=== PATIENT | male | born 1960 | race Hispanic/Latino ===

== ENCOUNTER → 2024-03-16 | Outpatient (CLI) | payer MEDICARE ==
--- NOTE | 2024-03-16 13:48 | HMCSR ---
APPROVED REPORT EXAM: Two-dimensional and M-mode echocardiogram with Doppler and color Doppler. INDICATION ICD: I50.22 Chronic systolic CHF 2D Dimensions RVDd3.9 cmLVEF(%)34.9 (>50%)LVED Vol(simp.)166.0 mL IVSd0.5 (0.7-1.1cm)FS(%)17 %LVES Vol(simp.)111.0 mL LVDd5.3 (3.8-5.6cm)Ao Root(2D)2.9 (2.0-3.7cm)LVEF(%, simp.)33 % PWd0.7 (0.7-1.1cm)LVOT diam1.9 (1.8-2.4cm)LA ESV INDEX (BP)28.14 mL/m2 LVDs4.4 (2.5-4.0cm)IVC diam2.0 cm Aortic Valve AoV Vmax1.2 m/Aris Peak GR5.4 mmHgLVOT Vmax0.8 m/s AoV VTI0.3 mAo Mean GR3.1 mmHgLVOT VTI0.20 m ARNAUD (VMAX)1.9 cm2AVA (VTI) 1.9 cm2 Mitral Valve MV E Vmax48.1 cm/sDECEL Wwao017 ms MV A Vmax40.1 cm/sP 1/2 T39 ms E/A ratio1.2MVA (PHT)5.7 cm2 MR Max PG62 mmHg TDI E/E' Medial7.5E/E' Lateral6.7 Pulmonary Valve PV Vmax0.9 m/sPV VTI0.20 mPV Mean GR2 mmHg PV Peak GR3.2 mmHgPI End Annemarie. Jonathan 1.0 cm/s Tricuspid Valve TR Vmax2.1 m/sRAP (EST) 8 jvBpZNWB43.1 mmHg TR Peak GR18.1 mmHg Left Ventricle The left ventricle chamber size is normal. There is thinning and akinesis of the anteroapical, apical and inferoapical wall. Limited apical dyskinesis. Thinning of the distal anterior wall and apex. No LVH. LVEF is estimate at 25-30%. Previously the LVEF by Lexiscan Cardiolite stress test was 25-30%. T here is an apical mural thrombus measuring 1.3 cm x 2.0 cm, with a more firm appearance without lobul ation or mobility. Fibrotic central element seen, with an inferoapical pedunculated stalk/attachment. Left ventricular filling pattern is normal for age. Right Ventricle The right ventricle is normal size. The right ventricular systolic function is normal. Atria The left atrium size is normal. The right atrium is mildly dilated. Aortic Valve Aortic valve is trileaflet. Aortic valve leaflets are sclerotic but open well. No aortic regurgitatio n is present. There is no aortic valvular stenosis. Mitral Valve Mitral valve leaflets are mildly sclerotic but open well. Mitral regurgitation is trace. There is no mitral valve stenosis. Tricuspid Valve The tricuspid valve leaflets appear normal. There is mild tricuspid regurgitation. Pulmonic Valve Pulmonic valve is not well visualized. There is trace pulmonic valvular regurgitation. Great Vessels The aortic root is normal in size. IVC is dilated and collapses >50% with inspiration. Pericardium No pericardial effusion. Conclusion The left atrium size is normal. The left ventricle chamber size is normal. There is thinning and akinesis of the anteroapical, apical and inferoapical wall. Limited apical dys kinesis. There is an apical mural thrombus measuring 1.3 cm x 2.0 cm, with a more firm appearance without lobu lation or mobility. Fibrotic central element seen, with an inferoapical pedunculated stalk/attachmen t. Aortic valve is trileaflet. Aortic valve leaflets are sclerotic but open well. Mitral regurgitation is trace. No pericardial effusion.
== END | disposition home or self-care (01) ==
LOC: SHCH 10:25
PROVIDERS: ATTEND Internal Medicine Cardiovascular Disease
DX: I08.3 Combined rheumatic disorders of mitral, aortic and tricuspid valves (principal); I50.22 Chronic systolic (congestive) heart failure
CPT/HCPCS: 93306

== ENCOUNTER 2024-07-20 05:48 | Day surgery (SDC) | payer MEDICARE ==
--- NOTE | 2024-07-18 09:17 | EKG ---
[facility] Test Date: 2024-07-18 Test Time: 09:13:20 Pat Name: MEGHAN PROCTOR Department: [facility] Room: Gender: M Store Mgr: [id number] : 1960 Requested By: ROSE REARDON Order Number: [id number] Reading MD: Ha Panchal Measurements Intervals [place] Rate: 58 P: 74 [place]: 140 QRS: 82 QRSD: 94 T: 84 QT: 402 QTc: 394 Interpretive Statements Sinus bradycardia Poor R wave progression No previous ECG available for comparison Electronically Signed On 07-18-2024 13:31:30 CDT by Ha Panchal Please click the below link to view image of tracing.
[2024-07-18 09:19] LABS: BASOPHILS # (AUTO) 0.03 K/uL (0.00-0.20); BASOPHILS % (AUTO) 0.5 % (0.0-5.0); EOSINOPHILS # (AUTO) 0.02 K/uL (0.00-0.70); EOSINOPHILS % (AUTO) 0.3 % (0.0-8.0); HEMATOCRIT 44.3 % (42-54); IMMATURE GRANULOCYTE ABSOLUTE 0.12 K/uL (0-1); MEAN CORPUSCULAR HEMOGLOBIN 34.8 pg (27.0-33.0); MEAN CORPUSCULAR HGB CONC 34.8 g/dL (32.0-36.0); MEAN CORPUSCULAR VOLUME 100.2 fL (79-99); MONOCYTES # (AUTO) 0.7 K/uL (0.1-1.0); MONOCYTES % (AUTO) 11.1 % (3.0-13.0); NEUTROPHILS # (AUTO) 3.7 K/uL (1.8-7.7); NEUTROPHILS % (AUTO) 56.3 % (40.0-77.0); PLATELET COUNT (AUTO) 144 K/uL (130-400); RED BLOOD CELL COUNT(AUTO) 4.42 MIL/uL (4.50-6.20); RED CELL DISTRIBUTION WIDTH 12.9 % (11.0-15.5); WHITE BLOOD COUNT (AUTO) 6.6 K/uL (4.8-10.8)
[2024-07-18 09:29] LABS: CREATININE 1.2 mg/dL (0.5-1.3); POTASSIUM 5.2 mmol/L (3.5-5.1)
[2024-07-18 09:30] LABS: INR 1.88 (0.85-1.15); PROTHROMBIN TIME 18.7 SEC (9.6-11.6)
[2024-07-18 09:32] LABS: PARTIAL THROMBOPLASTIN TIME 29.9 SEC (26.3-35.5)
[2024-07-18 09:36] VITALS: BP 117/67; PULSE 57; RESP 18; TEMP 97.4
--- NOTE | 2024-07-18 11:15 | NUR ---
REPORT DR REARDON INFORMED OF INR OF 1.88 DONE TODAY AT 0913. OK TO PROCEED Addendum: 07/18/24 at 1534 by MELISSA CESAR RN RN as per brandie pt was instructed to hold warfarin on 07/17.
[~2024-07-20] VITALS: Ht 162.6 cm; Wt 66.0 kg
[2024-07-20] VITALS (9 sets, daily range): BP systolic 85–117; BP diastolic 39–64; PULSE 51–85; RESP 8–15; TEMP 96.7–97.3
[~2024-07-20 05:48] MED LIST: ALBUTEROL IH; ATOR40TA71 PO; DAPA10TA PO; FLUT16H NASAL; FOLI1 PO; LORA10CA PO; METO-391 PO; SACU1TAB7 PO; SPIR25TA6 PO; WARF4TAB72 PO
[2024-07-20] MEDS: 0.9%NACL 1000ML 1,000 ML IV SCH (06:23)
[2024-07-20] MEDS ORDERED: LIDOCAINE HCL 1% MDV 50ML VIAL ONE (07:10)
[2024-07-20] MEDS ORDERED: IOHEXOL-350 50ML VIAL IV ONE (07:11)
[2024-07-20] MEDS ORDERED: ceFAZolin SODIUM 1 GM VIAL ONE (07:11)
[2024-07-20] MEDS ORDERED: BUPIvacaine/PF 0.25% 30ML VIAL IJ ONE (07:11)
[2024-07-20] MEDS ORDERED: SODIUM BICARB 50MEQ 50ML VIAL 50 ML ONE (07:11)
[2024-07-20] MEDS ORDERED: FENTanyl CITRate PF 50 MCG/1 ML 2ML VIAL ONE (07:37)
[2024-07-20] MEDS ORDERED: MIDAZOLAM HCL 1 MG/ML 2ML VIAL ONE ×2 (07:37→08:06)
[2024-07-20] MEDS ORDERED: TRAM50TA4 PO (09:15)
--- NOTE | 2024-07-20 09:25 | NUR ---
DRESSING: DRESSING TO LEFT UPPER CHEST DRY/INTACT WITH NO ACTIVE BLEEDING PRESENT. LEFT ARM IN PLACE TO ARM SLING.
[2024-07-20] MEDS ORDERED: acetaMINOPHEN 500 MG TABLET PO PRN (09:30)
--- NOTE | 2024-07-20 09:40 | NUR ---
DRESSING: DRESSING TO LEFT UPPER CHEST DRY/INTACT WITH NO ACTIVE BLEEDING PRESENT. NO REDNESS/SWELLING NOTED TO SURROUNDING AREA. LEFT ARM IN PLACE TO ARM SLING
--- NOTE | 2024-07-20 09:55 | NUR ---
DRESSING: DRESSING TO LEFT UPPER CHEST REMAINS DRY/INTACT WITH NO REDNESS/SWELLING NOTED TO SURROUNDING AREA. LEFT ARM IN PLACE TO LEFT ARM. Addendum: 07/20/24 at 1031 by KEON CHATMAN RN RN LEFT ARM SLING
--- NOTE | 2024-07-20 10:10 | NUR ---
DRESSING: DRESSING TO LEFT UPPER CHEST DRY/INTACT WITH NO ACTIVE BLEEDING PRESENT. NO REDNESS/SWELLING NOTED TO SURROUNDING AREA. LEFT ARM IN PLACE TO LEFT ARM. Addendum: 07/20/24 at 1031 by KEON CHATMAN RN RN IN PLACE TO ARM SLING
--- NOTE | 2024-07-20 10:25 | NUR ---
DRESSING: DRESSING TO LEFT UPPER CHEST REMAINS DRY/INTACT WITH NO REDNESS/SWELLING NOTED TO SURROUNDING AREA. LEFT ARM REMAINS IN PLACE TO ARM SLING.
--- NOTE | 2024-07-20 10:55 | NUR ---
DRESSING: DRESSING TO LEFT UPPER CHEST REMAINS DRY/INTACT WITH NO ACTIVE BLEEDING PRESENT. NO REDNESS/SWELLING NOTED TO SURROUNDING AREA . LEFT ARM REMAINS IN PLACE TO ARM SLING.
--- NOTE | 2024-07-20 11:00 | NUR ---
urinary: voided 450cc yellow color urine per urinal without difficultu.
[2024-07-20] MEDS: acetaMINOPHEN WITH coDEINE 1 TAB TAB PO PRN (11:09)
--- NOTE | 2024-07-20 11:15 | NUR ---
chest x-ray: dr. miranda viewed chest x-ray, ok to discharge home.
--- NOTE | 2024-07-20 11:19 | HMCIMG ---
Exam Type: CHEST 1VW Clinical Information: s/p pacemaker Comparison: None Findings: The lungs are clear of infiltrates. The heart is enlarged in size. The bony and soft tissue structures of the chest are unremarkable. Left cardiac pacemaker is noted with leads in place. Impression: Clear lungs.
--- NOTE | 2024-07-20 11:25 | NUR ---
dressing: dressing to left upper chest remains dry/intact with no active bleeding present. no redness/swelling noted to surrounding area. left arm in place to arm sling.
--- NOTE | 2024-07-20 11:50 | NUR ---
dressing: dressing to left upper chest remains dry/intact with no redness/swelling noted to surrounding area. left arm remained in place to arm sling.
== END 2024-07-20 11:50 | disposition home or self-care (01) ==
LOC: DAH 05:48
PROVIDERS: ATTEND Internal Medicine Cardiovascular Disease
DX: I11.0 Hypertensive heart disease with heart failure (principal); I50.22 Chronic systolic (congestive) heart failure; I25.5 Ischemic cardiomyopathy; I25.2 Old myocardial infarction; Z95.5 Presence of coronary angioplasty implant and graft; E78.5 Hyperlipidemia, unspecified; Z88.1 Allergy status to other antibiotic agents; Z79.899 Other long term (current) drug therapy
CPT/HCPCS: 80048; 85025; 85610; 85730; 36415; 93005; 33249; 99156; 99157 ×4; 71045; C1722; C1895; J3010; J0690; J7030; J0665; J3490 ×2; J2250 ×2; A4215; A6251; A4222; A4221; A4663; A4216; A6258; A4606; A4223 ×3; Q9967

== ENCOUNTER 2024-07-23 12:49 | Emergency (ER) | payer MEDICARE ==
[~2024-07-23] VITALS: Ht 170.2 cm; Wt 68.0 kg
[~2024-07-23 12:49] MED LIST changes: +TRAM50TA4 PO; -WARF4TAB72 PO
[2024-07-23 12:52] VITALS: TEMP 98.2
--- NOTE | 2024-07-23 13:06 | EKG ---
[facility] Test Date: 2024-07-23 Test Time: 13:03:27 Pat Name: MEGHAN PROCTOR Department: ED Room: Gender: M Fleet Manager: [id number] : 1960 Requested By: JIMBO CHANDLER Order Number: [id number] Reading MD: Maykel Collazo Measurements Intervals [place] Rate: 65 P: 68 [place]: 155 QRS: 80 QRSD: 86 T: 53 QT: 393 QTc: 410 Interpretive Statements Sinus rhythm Probable anterior infarct, age indeterminate Compared to ECG 07/18/2024 09:13:20 Myocardial infarct finding now present Sinus bradycardia no longer present Poor R-wave progression no longer present Electronically Signed On 07-25-2024 10:17:13 CDT by Maykel Collazo Please click the below link to view image of tracing.
[2024-07-23 13:10] LABS: BASOPHILS # (AUTO) 0.03 K/uL (0.00-0.20); BASOPHILS % (AUTO) 0.4 % (0.0-5.0); EOSINOPHILS # (AUTO) 0.02 K/uL (0.00-0.70); EOSINOPHILS % (AUTO) 0.3 % (0.0-8.0); HEMATOCRIT 43.8 % (42-54); IMMATURE GRANULOCYTE ABSOLUTE 0.13 K/uL (0-1); LYMPHOCYTES % (AUTO) 27.1 % (21.0-51.0); MEAN CORPUSCULAR HEMOGLOBIN 34.1 pg (27.0-33.0); MEAN CORPUSCULAR VOLUME 100.2 fL (79-99); MONOCYTES # (AUTO) 0.6 K/uL (0.1-1.0); MONOCYTES % (AUTO) 8.4 % (3.0-13.0); NEUTROPHILS # (AUTO) 4.5 K/uL (1.8-7.7); PLATELET COUNT (AUTO) 101 K/uL (130-400); RED BLOOD CELL COUNT(AUTO) 4.37 MIL/uL (4.50-6.20); RED CELL DISTRIBUTION WIDTH 12.6 % (11.0-15.5); WHITE BLOOD COUNT (AUTO) 7.2 K/uL (4.8-10.8)
[2024-07-23 13:19] LABS: CREATININE 1.2 mg/dL (0.5-1.3); POTASSIUM 4.7 mmol/L (3.5-5.1)
[2024-07-23 14:49] LABS: ADD UA MICROSCOPIC YES; APPEARANCE,URINE CLEAR (CLEAR); BILIRUBIN,URINE NEGATIVE (NEGATIVE); COLOR,URINE YELLOW (YELLOW); GLUCOSE, URINE (UA) >=1000 mg/dL (NEGATIVE); KETONES,URINE NEGATIVE (NEGATIVE); LEUKOCYTE ESTERASE ,URINE NEGATIVE Leu/uL (NEGATIVE); NITRATE,URINE NEGATIVE (NEGATIVE); OCCULT BLOOD,URINE NEGATIVE (NEGATIVE); PH,URINE 6.5 (5.0-8.0); PROTEIN,URINE NEGATIVE (NEGATIVE); UROBILINOGEN,URINE 0.2 mg/dL (0.2-1.0)
[2024-07-23] MEDS: ondanSETRON 4MG TABLET PO ONE (15:09)
[2024-07-23] MEDS: morPHINE 2 MG SYG IM ONE (15:09)
[2024-07-23 15:17] VITALS: BP 122/80; PULSE 60; RESP 15; O2SAT 97
--- NOTE | 2024-07-23 15:32 | ERN ---
General Chief Complaint: Post-Op Problem Stated Complaint: CHRONIC SYSTOLIC HEART FAILURE,REFERRAL BY DOCTOR Time Seen by MD: 12:49 Source: patient History of Present Illness Initial Comments Patient is a 64-year-old gentleman coming in complaining of left-sided chest discomfort. He states that he had a recent device inserted. Patient was told by portable power tool repairer to follow up with the ER due to ongoing pain. Patient was told to sling but has not been wearing it. Allergies: Coded Allergies: erythromycin base (Unverified Allergy, Unknown, 07/18/24) Home Meds Active Scripts Tramadol Hcl (Tramadol HCl) 50 Mg Tablet, 50 MG PO Q6HPRN PRN for PAIN, #15 TAB 0 Refills Prov:ROSE REARDON MD 07/20/24 Reported Medications Fluticasone Propionate (Flonase Nasal [place]) 50 Mcg/Actuation [place], 1 SPRAY NASAL AM, SPRAY 07/18/24 Loratadine (Claritin) 10 Mg Capsule, 10 MG PO DAILY, CAP 07/18/24 Folic Acid (Folvite) 1 Mg Tab, 1 MG PO DAILY, TAB 07/18/24 Metoprolol Succinate (Metoprolol Succinate) 50 Mg Tab.er.24h, 50 MG PO HS, TAB 07/18/24 Spironolactone (Spironolactone) 25 Mg Tablet, 25 MG PO HS, TAB 07/18/24 [Albuterol] No Conflict Check, 1 PUFF IH Q6HPRN PRN for SHORTNESS OF BREATH 07/18/24 Sacubitril/Valsartan (Entresto 49 mg-51 mg Tablet) 49 Mg-51 Mg Tablet, 1 EACH PO BID, TAB 07/18/24 Dapagliflozin Propanediol (Farxiga) 10 Mg Tablet, 10 MG PO HS, TAB 07/18/24 Atorvastatin Calcium (Atorvastatin Calcium) 40 Mg Tablet, 40 MG PO HS, TAB 07/18/24 Discontinued Reported Medications Warfarin Sodium (Warfarin Sodium) 4 Mg Tablet, 6 MG PO THUR/SAT, TAB 07/18/24 Warfarin Sodium (Warfarin Sodium) 4 Mg Tablet, 4 MG PO [id number], TAB 07/18/24 Past Medical History Past Medical History: Heart Disease, [place] Past Surgical History: Pacer/AICD ROS Dictation CONSTITUTIONAL: No chills, no fever, no weakness, no diaphoresis, no malaise. HEAD/FACE: No signs of trauma. EENT: No eye pain, no blurred vision, no tearing, no double vision, no ear pain, no ear discharge, no nose pain, no nasal congestion, no throat pain, no throat swelling, no mouth pain. RESPIRATORY: No cough, no orthopnea, no SOB, no stridor, no wheezing. CARDIOVASCULAR: chest pain, no edema, no palpitations, no syncope. GASTROINTESTINAL/ABDOMINAL: No abdominal pain, no constipation, no diarrhea, no nausea, no vomiting. GENITOURINARY: No abnormal discharge, no dysuria, no frequent urination, no hematuria. No complaints of pain in the genitals. MUSCULOSKELETAL: No back pain, no gout, no joint pain, no joint swelling, no muscle pain, no muscle stiffness, no neck pain. INTEGUMENTARY: No change in color, no change in hair/nails, no dryness, no lesion, no lumps, no rash. NEUROLOGICAL/PSYCH: No anxiety, not depressed, no emotional problem, no headache, no numbness, no pre-existing deficit, no history of seizures, no tremors, no weakness. HEMATOLOGIC/LYMPHATIC: Not anemic, no history of blood clots, no apparent bleeding, no bruising, glands not swollen. All Systems Negative, Except as Noted. Physical Exam Physical Exam Dictation VITAL SIGNS: Reviewed. GENERAL APPEARANCE: Alert, oriented x3, no acute distress, obese. HEAD AND FACE: Non-traumatic. EYES: PERRL, pink conjunctivas, eyelid no trauma, anterior chamber clear. EARS: Pinnas intact and no signs of trauma or erythema. Ear canals clear and no discharge. TMs no erythema. NOSE: No discharge, no bleeding. OROPHARYNX: Mouth normal, teeth no caries, tongue pink. Pharynx clear, no erythema. Tonsils no exudates, no abscesses noted. Mucous membrane moist. NECK: Supple, non-tender, no thyromegaly, no masses, no JVD, no bruits. BREAST: Deferred. CHEST: Left side tenderness, no crepitus, no paradoxical movement, no retractions. LUNGS: Clear, well-ventilated, symmetric, no rales, no wheezing, no rhonchi, no stridor, good breath sounds bilaterally. HEART: Regular rate, regular rhythm, no murmur, no gallops. VASCULAR: No peripheral edema. ABDOMEN: Soft, positive bowel sounds, nondistended, no guarding, nontender, no rebound, no masses no hepatomegaly, no splenomegaly, no Mcdonald's sign, no hernias. RECTAL: Deferred. GENITAL: Deferred. NEUROLOGICAL: Normal speech, gross motor function intact, gross sensory function intact. MUSCULOSKELETAL: Neck nontender, full range of motion, back nontender, full range of motion. EXTREMITIES: Nontender, full range of motion. SKIN: Color pink, dry, no turgor, no rash, no lacerations, no abrasions, no contusions. LYMPHATICS: Deferred. Results Laboratory and Microbiology Lab and Micro Result Laboratory Tests Test 07/23/24 13:02 07/23/24 14:08 White Blood Count 7.2 K/uL (4.8-10.8) Red Blood Count 4.37 MIL/uL (4.50-6.20) L Hemoglobin 14.9 g/dL (14.0-18.0) Hematocrit 43.8 % (42-54) Mean Corpuscular Volume 100.2 fL (79-99) H Mean Corpuscular Hemoglobin 34.1 pg (27.0-33.0) H Mean Corpuscular Hemoglobin Concent 34.0 g/dL (32.0-36.0) Red Cell Distribution Width 12.6 % (11.0-15.5) Platelet Count 101 K/uL (130-400) L Mean Platelet Volume 9.9 fL (7.5-10.5) Immature Granulocyte % (Auto) 1.8 % (0-1) H Neutrophils (%) (Auto) 62.0 % (40.0-77.0) Lymphocytes (%) (Auto) 27.1 % (21.0-51.0) Monocytes (%) (Auto) 8.4 % (3.0-13.0) Eosinophils (%) (Auto) 0.3 % (0.0-8.0) Basophils (%) (Auto) 0.4 % (0.0-5.0) Neutrophils # (Auto) 4.5 K/uL (1.8-7.7) Lymphocytes # (Auto) 2.0 K/uL (1.0-4.8) Monocytes # (Auto) 0.6 K/uL (0.1-1.0) Eosinophils # (Auto) 0.02 K/uL (0.00-0.70) Basophils # (Auto) 0.03 K/uL (0.00-0.20) Absolute Immature Granulocyte (auto 0.13 K/uL (0-1) Nucleated Red Blood Cells 0.0 % (0.0-0.19) Sodium Level 139 mmol/L (136-145) Potassium Level 4.7 mmol/L (3.5-5.1) Chloride Level 100 mmol/L (101-111) L Carbon Dioxide Level 33 mmol/L (21-32) H Blood Urea Nitrogen 24 mg/dL (7-18) H Creatinine 1.2 mg/dL (0.5-1.3) Glomerular Filtration Rate Calc 67 mL/min (>90) Random Glucose 161 mg/dL (70-105) H Total Calcium 9.4 mg/dL (8.5-10.1) Troponin I High Sensitivity 12 ng/L (4-75) Urine Color YELLOW (YELLOW) Urine Appearance CLEAR (CLEAR) Urine pH 6.5 (5.0-8.0) Urine Specific [place] 1.018 (1.001-1.031) Urine Protein NEGATIVE mg/dL (NEGATIVE) Urine Glucose (UA) >=1000 mg/dL (NEGATIVE) H Urine Ketones NEGATIVE mg/dL (NEGATIVE) Urine Occult Blood NEGATIVE (NEGATIVE) Urine Nitrate NEGATIVE (NEGATIVE) Urine Bilirubin NEGATIVE mg/dL (NEGATIVE) Urine Urobilinogen 0.2 mg/dL (0.2-1.0) Urine Leukocyte Esterase NEGATIVE [place]/uL Labs Reviewed?: Yes EKG/XRAY/US/CT/MRI EKG Comment 07/23/2024 time 1:03 p.m. Ventricular rate 65 Sinus rhythm [place] [address] wave elevation or depression X-RAY Comment Chest x-ray-NAD MDM MDM: Differential diagnosis: Left-sided chest pain,. Post up Evaluation, Rationale: Tests considered and ordered secondary to shared decision making include: Previous outside records reviewed: Old ER visits. Risk of complication and/or morbidity or mortality of patient management: None Medications-Per medication reconciliation Need for hospitalization: Patient does not meet criteria for hospitalization. Patient is a 64-year-old male coming in to be evaluated for left-sided chest discomfort. Patient states that he had has had a recent device implanted. He has not been wearing his sling as told by the portable power tool repairer. I educated him on proper positioning of sling in why the sting was important. Laboratory workup mild dehydration patient was hydrated IV fluids I also advised him appropriate follow up with PCP. Patient will be discharged in stable condition. ED Course Orders Procedure Category Date Status Time Cbc With Differential LAB 07/23/24 Complete 12:53 Chest 1vw RAD 07/23/24 Taken 12:53 12 Lead Ekg Tracing- EKG 07/23/24 Complete Technical 12:53 Troponin I High LAB 07/23/24 Complete Sensitivity 12:53 Urinalysis Profile LAB 07/23/24 In Process 12:53 Basic Metabolic Panel LAB 07/23/24 Complete 12:53 Morphine 2mg Syg PHA 07/23/24 In Process (Morphine 2mg Syg) 15:30 Ondansetron 4mg PHA 07/23/24 In Process Tablet (Zofran 4mg 15:30 0.9% Nacl 500ml PHA 07/23/24 In Process Iv.Soln (Ns 500ml 15:30 Current Medications Medications (Trade) Dose Ordered Sig/Magalis Route PRN Reason Start Time Stop Time Status Last Admin Dose Admin Morphine Sulfate (morPHINE 2MG SYG) 2 mg ONCE ONCE IM 07/23/24 15:30 07/23/24 15:31 07/23/24 15:09 Ondansetron HCl (zoFRAN 4MG TABLET) 4 mg ONCE ONCE PO 07/23/24 15:30 07/23/24 15:31 07/23/24 15:09 Sodium Chloride 500 ml @ 0 mls/hr ONCE ONCE IV 07/23/24 15:30 07/23/24 15:31 Vital Signs Date Time Temp Pulse Resp B/P (MAP) Pulse Ox O2 Delivery O2 Flow Rate FiO2 07/23/24 15:17 60 15 122/80 97 Room Air* 0 21 07/23/24 12:52 98.2 68 16 121/76 98 Room Air* 0 21 07/23/24 12:52 98.2 68 16 121/76 98 Room Air 0 DX & DISP Disposition: Discharge Departure Impression: Primary Impression: Encounter for evaluation of wound Condition: Stable Additional Instructions: You have been reviewed in the emergency department at [facility] after presenting with chest pain. After considering your history, your risk factors, your EKG and your blood test troponins, have been found to be at very low risk less than (1 in 100) of having a major adverse cardiac event (like heart attack) in the near future. In the " low risk" group, the risks of doing further tests and treatment as the inpatient outweighs the benefits. In many patients in the low risk group for the test of any sort or unnecessary, however he should discuss this further with his general practitioner who will understand the medical and personal backgrounds better. Because we have never declared you" no risk" we would suggest. 1 returning for medical review if you have further episodes of chest pain/arm pain or other concerning symptoms like dizziness, collapse, palpitations or shortness of breath. 2. Following up with your local doctor who will consider the need for further testing and will also ensure that any modifiable risk factors you may have for heart disease are optimally managed. Patient will be discharged in stable condition at the moment discharge patient states , no chest pain Referrals: ANANTH MILLER MD (PCP) Time of Disposition: 15:31 JIMBO CHANDLER MD Jul 23, 2024 15:32
[2024-07-23] MEDS: 0.9% NACL 500ML IV.SOLN 500 ML IV ONE (15:37)
--- NOTE | 2024-07-23 15:57 | HMCIMG ---
CHEST 1VW HISTORY: Chest pain COMPARISON: 07/20/2024 FINDINGS: A frontal projection of the chest was obtained. No acute pulmonary infiltrates is seen. The heart is normal in size. Degenerative changes are seen. Pacemaker is seen entering from the left. Prominent interstitial markings are seen. No evidence of aortic calcification is seen. IMPRESSION: 1. No acute pulmonary infiltrate is seen.
[2024-07-23 16:44] LABS: MUCUS,URINE RARE LPF (None Seen); RBC,URINE 0-1 /HPF (0-1)
== END 2024-07-23 15:55 | disposition home or self-care (01) ==
LOC: EDH 12:49
DX: R07.89 Other chest pain (principal); Z48.812 Encounter for surgical aftercare following surgery on the circulatory system; Z79.899 Other long term (current) drug therapy; Z88.1 Allergy status to other antibiotic agents; Z95.810 Presence of automatic (implantable) cardiac defibrillator
CPT/HCPCS: 99285; 71045; 84484; 80048; 85025; 81001; 36415; 96372; 93005; Q0162; J2270; J7040

== ENCOUNTER 2024-09-22 20:29 | Emergency (ER) | payer MEDICARE ==
[~2024-09-22] VITALS: Ht 172.7 cm; Wt 68.0 kg
[2024-09-22 21:41] LABS: IMMATURE GRANULOCYTE ABSOLUTE 0.14 K/uL (0-1); NUCLEATED RED BLOOD CELLS 0.0 % (0.0-0.19); PLATELET COUNT (AUTO) 113 K/uL (130-400); RED BLOOD CELL COUNT(AUTO) 4.21 MIL/uL (4.50-6.20); RED CELL DISTRIBUTION WIDTH 13.0 % (11.0-15.5); WHITE BLOOD COUNT (AUTO) 9.2 K/uL (4.8-10.8)
[2024-09-22 21:49] LABS: CREATININE 1.1 mg/dL (0.5-1.3); GLOMERULAR FILTR. RATE CALC 74.0 mL/min (>90); GLUCOSE,RANDOM 117.0 mg/dL (70-105); SODIUM SERUM 139.0 mmol/L (136-145); UREA NITROGEN, BLOOD 22.0 mg/dL (7-18)
[2024-09-22 21:51] LABS: ADD UA MICROSCOPIC YES; APPEARANCE,URINE CLEAR (CLEAR); GLUCOSE, URINE (UA) >=1000 mg/dL (NEGATIVE); LEUKOCYTE ESTERASE ,URINE NEGATIVE Leu/uL (NEGATIVE); NITRATE,URINE NEGATIVE (NEGATIVE); OCCULT BLOOD,URINE NEGATIVE (NEGATIVE)
[2024-09-22 21:53] LABS: ASPARTATE AMINOTRANSFERASE 21.0 U/L (10-37); TOTAL PROTEIN, SERUM 7.0 g/dL (6.0-8.3)
[2024-09-22 23:10] VITALS: BP 131/82; PULSE 74; RESP 20; TEMP 98.1; O2SAT 97
--- NOTE | 2024-09-22 23:24 | ERN ---
General Chief Complaint: Multiple Complaints Stated Complaint: ABD " BLOATING", GROIN PAIN, JOINT PAIN, Time Seen by MD: 20:38 Time Seen by Midlevel: 20:38 Source: patient History of Present Illness Initial Comments The patient is a 64-year-old male presenting to the emergency department for evaluation of a skin rash to his suprapubic/groin region. The patient states he had gotten into the shower when he noticed some redness to his suprapubic/groin area and decided to report to the ER for further evaluation. He specifically denies any fever, chills, or any other symptoms at this time. Allergies: Coded Allergies: erythromycin base (Unverified Allergy, Unknown, 07/18/24) Home Meds Active Scripts Tramadol Hcl (Tramadol HCl) 50 Mg Tablet, 50 MG PO Q6HPRN PRN for PAIN, #15 TAB 0 Refills Prov:ROSE REARODN MD 07/20/24 Reported Medications Fluticasone Propionate (Flonase Nasal [place]) 50 Mcg/Actuation [place], 1 SPRAY NASAL AM, SPRAY 07/18/24 Loratadine (Claritin) 10 Mg Capsule, 10 MG PO DAILY, CAP 07/18/24 Folic Acid (Folvite) 1 Mg Tab, 1 MG PO DAILY, TAB 07/18/24 Metoprolol Succinate (Metoprolol Succinate) 50 Mg Tab.er.24h, 50 MG PO HS, TAB 07/18/24 Spironolactone (Spironolactone) 25 Mg Tablet, 25 MG PO HS, TAB 07/18/24 [Albuterol] No Conflict Check, 1 PUFF IH Q6HPRN PRN for SHORTNESS OF BREATH 07/18/24 Sacubitril/Valsartan (Entresto 49 mg-51 mg Tablet) 49 Mg-51 Mg Tablet, 1 EACH PO BID, TAB 07/18/24 Dapagliflozin Propanediol (Farxiga) 10 Mg Tablet, 10 MG PO HS, TAB 07/18/24 Atorvastatin Calcium (Atorvastatin Calcium) 40 Mg Tablet, 40 MG PO HS, TAB 07/18/24 Past Medical History Past Medical History: High Cholesterol, Heart Disease, ID Past Surgical History: Pacer/AICD, Other Surgical History Other: CARDIAC STENTS ROS Dictation CONSTITUTIONAL: Negative except for HPI HEAD/FACE: Negative except for HPI EENT: Negative except for HPI RESPIRATORY: Negative except for HPI GASTROINTESTINAL/ABDOMINAL: Negative except for HPI GENITOURINARY: Negative except for HPI MUSCULOSKELETAL: Negative except for HPI INTEGUMENTARY: Negative except for HPI NEUROLOGICAL/PSYCH: Negative except for HPI HEMATOLOGIC/LYMPHATIC: Negative except for HPI All Systems Negative, Except as noted above. 13 point review of systems assessed and all negative except for above. Physical Exam Physical Exam Dictation PHYSICAL EXAM: GENERAL: alert,, awake oriented x 3 HEENT: EOMI, Sclera non icteric, moist mucosa NECK: Supple, no JVD, trachea midline LUNGS: Clear breath sounds bilaterally. No wheezes HEART: Regular rate and rhythm. Normal S1 and S2, without murmurs ABD: Abdomen soft, nontender. Bowel sounds present EXT: No clubbing or cyanosis, NEURO: Alert and oriented to person, follows commands SKIN: There was an area of erythema overlying the suprapubic region, area is warm to touch, no drainable abscess or induration noted Results Laboratory and Microbiology Lab and Micro Result Laboratory Tests Test 09/22/24 21:33 09/22/24 21:38 White Blood Count 9.2 K/uL (4.8-10.8) Red Blood Count 4.21 MIL/uL (4.50-6.20) L Hemoglobin 14.5 g/dL (14.0-18.0) Hematocrit 43.2 % (42-54) Mean Corpuscular Volume 102.6 fL (79-99) H Mean Corpuscular Hemoglobin 34.4 pg (27.0-33.0) H Mean Corpuscular Hemoglobin Concent 33.6 g/dL (32.0-36.0) Red Cell Distribution Width 13.0 % (11.0-15.5) Platelet Count 113 K/uL (130-400) L Mean Platelet Volume 9.8 fL (7.5-10.5) Immature Granulocyte % (Auto) 1.5 % (0-1) H Neutrophils (%) (Auto) 68.6 % (40.0-77.0) Lymphocytes (%) (Auto) 18.8 % (21.0-51.0) L Monocytes (%) (Auto) 10.5 % (3.0-13.0) Eosinophils (%) (Auto) 0.2 % (0.0-8.0) Basophils (%) (Auto) 0.4 % (0.0-5.0) Neutrophils # (Auto) 6.3 K/uL (1.8-7.7) Lymphocytes # (Auto) 1.7 K/uL (1.0-4.8) Monocytes # (Auto) 1.0 K/uL (0.1-1.0) Eosinophils # (Auto) 0.02 K/uL (0.00-0.70) Basophils # (Auto) 0.04 K/uL (0.00-0.20) Absolute Immature Granulocyte (auto 0.14 K/uL (0-1) Nucleated Red Blood Cells 0.0 % (0.0-0.19) Sodium Level 139 mmol/L (136-145) Potassium Level 4.1 mmol/L (3.5-5.1) Chloride Level 103 mmol/L (101-111) Carbon Dioxide Level 31 mmol/L (21-32) Blood Urea Nitrogen 22 mg/dL (7-18) H Creatinine 1.1 mg/dL (0.5-1.3) Glomerular Filtration Rate Calc 74 mL/min (>90) Random Glucose 117 mg/dL (70-105) H Total Calcium 8.8 mg/dL (8.5-10.1) Total Bilirubin 0.4 mg/dL (0.2-1.0) Aspartate Amino Transf (AST/SGOT) 21 U/L (10-37) Alanine Aminotransferase (ALT/SGPT) 28 U/L (12-78) Alkaline Phosphatase 40 U/L (50-136) L B-Type Natriuretic Peptide 84 pg/mL (0-100) Total Protein 7.0 g/dL (6.0-8.3) Albumin 3.7 g/dL (3.5-5.0) Lipase 29 U/L (16-77) Urine Color YELLOW (YELLOW) Urine Appearance CLEAR (CLEAR) Urine pH 5.5 (5.0-8.0) Urine Specific [place] 1.021 (1.001-1.031) Urine Protein NEGATIVE mg/dL (NEGATIVE) Urine Glucose (UA) >=1000 mg/dL (NEGATIVE) H Urine Ketones NEGATIVE mg/dL (NEGATIVE) Urine Occult Blood NEGATIVE (NEGATIVE) Urine Nitrate NEGATIVE (NEGATIVE) Urine Bilirubin NEGATIVE mg/dL (NEGATIVE) Urine Urobilinogen 0.2 mg/dL (0.2-1.0) Urine Leukocyte Esterase NEGATIVE [place]/uL Urine RBC None /HPF (0-1) Urine WBC None /HPF (0-1) Urine Bacteria None /HPF (None Seen) Labs Reviewed?: Yes MDM MDM: Differential diagnosis: Cellulitis, tinea cruris, contact dermatitis There are no social concerns with this patient. Prescription drug management Prescriptions will include: Augmentin Medical management and examination interpretation discussions were had by me with other qualified healthcare professionals as indicated for the patient's care. ED Course Orders Procedure Category Date Status Time 12 Lead Ekg Tracing- EKG 09/22/24 Logged Technical 20:32 Cbc With Differential LAB 09/22/24 Complete 20:59 Comprehensive LAB 09/22/24 Complete Metabolic Panel 20:59 Lipase LAB 09/22/24 Complete 20:59 Urinalysis Profile LAB 09/22/24 Complete 20:59 B-Type Natriuretic LAB 09/22/24 Complete Peptide 21:38 Vital Signs Date Time Temp Pulse Resp B/P (MAP) Pulse Ox O2 Delivery O2 Flow Rate FiO2 09/22/24 23:10 98.1 74 20 131/82 97 Room Air* 0 21 09/22/24 21:14 98.2 82 18 122/72 98 Room Air* 0 21 09/22/24 20:32 98.1 94 20 133/80 100 Room Air DX & DISP Disposition: Discharge Departure Impression: Primary Impression: Skin rash Condition: Stable Additional Instructions: Based on my physical examination there is a concern that the rash to your groin area may be the start of an infection. You were given1 g of ceftriaxone in the emergency department and we will be discharged home with a prescription for amoxicillin. Please follow up with your primary care doctor on Tuesday for repeat evaluation. Referrals: ANANTH MILLER MD (PCP) Time of Disposition: 23:22 I have reviewed the case, and I agree with, Diagnosis and Plan I performed the substantive portion of the visit. I have reviewed and personally made and approve the management plan that is documented in the note by myself or the JAXON. I acknowledge for responsibility for the patient's management plan. ALEX CHU Sep 22, 2024 23:24
[2024-09-22] MEDS: cefTRIAXone 1G VIAL 1 GM ONE (23:29)
[2024-09-22] MEDS ORDERED: AMOX1TAB16 PO (23:36)
--- NOTE | 2024-09-23 05:59 | EKG ---
[facility] Test Date: 2024-09-22 Test Time: 20:31:03 Pat Name: MEGHAN PROCTOR Department: ED Room: Gender: M [employer] Maker: [facility] : 1960 Requested By: DAYAN DOWELL Order Number: [id number] Reading MD: Deepti Wilson Measurements Intervals [place] Rate: 75 P: 63 [place]: 139 QRS: 75 QRSD: 86 T: 36 QT: 340 QTc: 381 Interpretive Statements Sinus rhythm Anterior infarct, old Compared to ECG 07/23/2024 13:03:27 No significant changes Electronically Signed On 09-23-2024 15:40:35 CDT by Deepti Wilson Please click the below link to view image of tracing.
== END 2024-09-22 23:32 | disposition home or self-care (01) ==
LOC: EDH 20:29
DX: R21 Rash and other nonspecific skin eruption (principal); E78.00 Pure hypercholesterolemia, unspecified; Z79.899 Other long term (current) drug therapy; Z88.1 Allergy status to other antibiotic agents; Z95.5 Presence of coronary angioplasty implant and graft; Z95.810 Presence of automatic (implantable) cardiac defibrillator
CPT/HCPCS: 99284; 80053; 83880; 83690; 85025; 81001; 36415; 96372; 93005; J0696